=== PATIENT | female | born 1975 | race Caucasian/White ===

== ENCOUNTER 2018-12-11 20:06 | Emergency (ER) | payer OTHER ==
[~2018-12-11] VITALS: Ht 162.6 cm; Wt 113.4 kg
[~2018-12-11 20:06] MED LIST: HYDACE5 PO; LEVFLO500 PO; PROM25 PO
== END 2018-12-11 22:01 | disposition home or self-care (01) ==
LOC: ER 20:06
DX: S89.91XA Unspecified injury of right lower leg, initial encounter (principal); M25.571 Pain in right ankle and joints of right foot; F17.210 Nicotine dependence, cigarettes, uncomplicated; V86.59XA Driver of other special all-terrain or other off-road motor vehicle injured in nontraffic accident, initial encounter
CPT/HCPCS: 73610; 96372; 99283-25; J1885